=== PATIENT | male | born 1945 | race Caucasian/White ===

== ENCOUNTER 2019-10-12 06:31 | Observation (INO) | payer MEDICARE, BC ==
--- NOTE | 2019-09-23 10:30 | HP ---
AMENDED REPORT NOW INCLUDES DESIGNATED COSIGNER - ESIGNED BEFORE ADJUSTMENT HISTORY AND PHYSICAL: DATE OF ADMISSION/SURGERY: 10/12/19 DATE OF OFFICE VISIT: 09/22/19 SURGEON: Berta San MD * (DICTATED BY DAVID LOPEZ) PROCEDURE: Left total knee arthroplasty. CHIEF COMPLAINT: Left knee pain. HISTORY OF PRESENT ILLNESS: Mr. Campos is a 74-year-old gentleman with end- stage osteoarthritis of the left knee. He has failed conservative treatment and elected to proceed with a left total knee arthroplasty. PAST MEDICAL HISTORY: RA and hypertension. PAST SURGICAL HISTORY: Right total knee arthroplasty, bilateral knee arthroscopies, and tonsillectomy. CURRENT MEDICATIONS: 1. Methotrexate 2.5 mg weekly. 2. Multivitamin. 3. Folic acid. 4. Amlodipine 5 mg a day. ALLERGIES: GABAPENTIN. FAMILY HISTORY: Cancer and coronary artery disease. SOCIAL HISTORY: He is a 74-year-old gentleman, lives with his . He does not smoke or use drugs. He uses occasional alcohol. REVIEW OF SYSTEMS: A complete 14-point review of systems was reviewed with the patient. It is all negative and noncontributory. He denies a history of DVT, PE, hepatitis, HIV or anesthesia problems. PHYSICAL EXAMINATION GENERAL: He is well developed, well nourished, in no acute distress. VITAL SIGNS: He stands 70 inches tall, weighs 185 pounds. His blood pressure is 146/81, his heart rate is 62. HEENT: Normocephalic, atraumatic. NECK: Supple. No palpable lymph nodes. PULMONARY: The lungs are clear to auscultation bilaterally. CARDIO: Regular rate and rhythm. Strong S1, S2. ABDOMEN: Soft, nontender, nondistended. MUSCULOSKELETAL: Left lower extremity: The skin is intact. There are no open wounds or abrasions. There is a moderate effusion of the left knee joint and varus deformity. He is able to dorsiflex and plantar flex. He has a 2+ dorsalis pedis pulse and intact sensation. NEUROLOGICAL: He is alert and oriented x3. ASSESSMENT AND PLAN: Mr. Campos is a 74-year-old gentleman with end-stage osteoarthritis of the left knee. He has failed conservative treatment and elected to proceed with a left total knee arthroplasty. The surgery is scheduled for 10/12/[address] San discussed the risks and benefits of the surgery at today's visit and all of his questions were answered. He will follow up with Dr. San 2 weeks after the surgery. DAVID LOPEZ [id number]/[facility] #: [id number] CHERIE
[~2019-10-12 06:31] MED LIST: Acetaminophen TAB* 325 MG PO ONE; Buffered Lidocaine 1% SYRIN* 1 ML/SYRINGE INTRADERM ONE; Lactated Ringers 1000 ML Bag* 1,000 ML IV SCH; Tranexamic Acid 1,000 MG in NS 0.9% 50 ML* (outpatient use) IV SCH; celeCOXIB CAP* 200 MG PO ONE
--- OUTSIDE RECORDS SUMMARY | 2019-10-12 06:34 | XMS REPORT | Continuity of Care Document ---
:1945 External Reference #:[id number] Author Name Christie Olvera MD (transmitted by agent of provider Dagmar Shay) Address [address] , [place] [address] Care Team Providers Name Role Phone Ronn Simmons MD - Rheumatology Care Team Information Public Service Representative Alan Rudd MD - Orthopaedic Care Team Information Public Service Representative Surgery Leann Stevens MD - Care Team Information Public Service Representative [phone] Dermatology Curry Maldonado MD - Gastroenterology Care Team Information Public Service Representative Sigrid Veloz M.D. - Family Medicine Care Team Information Public Service Representative [phone] Problems Active Problems Provider Date Rheumatoid arthritis Zac Stone M.D. Onset: 03/26/2016 Localized, primary osteoarthritis Zac Stone M.D. Onset: 03/26/2016 Benign neoplasm of colon Zac Stone M.D. Onset: 03/26/2016 Essential hypertension Zac Stone M.D. Onset: 06/28/2016 Arthroplasty of knee Berta San M.D. Onset: 10/04/2016 Disorder of skin and/or subcutaneous tissue Zac Stone M.D. Onset: Acquired genu varum Berta San M.D. Onset: 09/22/2019 Social History Type Date Description Comments Sex Unknown Tobacco Use Start: Unknown End: Former Cigarette Smoker Unknown Smoking Status Reviewed: 10/07/19 Former Cigarette Smoker ETOH Use consumes 6 beers per week Tobacco Use Start: Unknown End: Patient is a former 1ppd X 15-16 years Unknown smoker Recreational Drug Use Denies Drug Use Exercise Type/Frequency Exercises sporadically Allergies, Adverse Reactions, Alerts Active Allergies Reaction Severity Comments Date Gadoteridol 05/13/2016 Inactive Allergies NKDA 04/11/2016 Medications Active Medications SIG Qnty Indications Ordering Provider Date Amoxicillin take 4 pills, 2 g 4caps Bertasuri San, 10/15/2017 500mg 1 hour before M.D. Capsules dental or gi procedure Folic Acid take 1 tablet by 90tabs M06.09 Ronn Simmons, 10/15/2017 1mg mouth once daily M.D. Tablets M06.00 Methotrexate Take 3 Tablets By 42tabs M06.09 Ronn Simmons, 10/15/2017 2.5mg Tablets Mouth Once A Week M.D. M06.00 Multi For Him 50+ 1 by mouth every Z01.818 Unknown day Tablets Amlodipine Besylate take 1 tablet by 90tabs Loretta Rodriguez, 5mg mouth once daily M.D. Tablets Medications Administered in Office Medication SIG Qnty Indications Ordering Provider Date Triamcinolone (Kenalog) Ronn Simmons M.D. 04/11/2016 Injection Immunizations CPT Code Status Date Vaccine Reaction Lot # [id number] Given 07/01/2019 Influenza Virus Vaccine, Quadrivalent, Split, Im Use [id number] Given 04/30/2018 Pneumonia Vaccine no immediate reaction [id number] noted 71160 Given 04/11/2017 Influenza Virus Vaccine, Quadrivalent, Split, Preservative Free [id number] Given 10/22/2016 Pneumococcal Conjugate [id number] Vaccine 13 Valent For Intramuscular Use 99917 Given 06/28/2016 Influ Virus Vaccine, [id number] Quadrivalent, Split Virus, Im Fluzone not PF Vital Signs Date Vital Result Comment 10/07/2019 7:57am Height 70.25 inches 5'10.25" Weight 190.00 lb Heart Rate 70 /min BP Systolic Sitting 147 mmHg BP Diastolic Sitting 88 mmHg O2 % BldC Oximetry 97 % BMI (Body Mass Index) 27.1 kg/m2 09/22/2019 8:10am Height 70.25 inches 5'10.25" Weight 190.50 lb Heart Rate 64 /min BP Systolic 142 mmHg BP Diastolic 76 mmHg Respiratory Rate 18 /min Pain Level 1 BMI (Body Mass Index) 27.1 kg/m2 Results Test Acquired Date Facility Test Result H/L Range Note CBC Auto 10/05/2019 [facility] White Blood 7.1 10^3/uL Normal 3.5-10.[address] [place] [address] [phone] Red Blood Count 4.36 10^6/uL Normal 4.18-5.48 Hemoglobin 14.2 g/dL Normal 14.0-18.0 Hematocrit 42 % Normal 42-52 Mean Corpuscular Volume 95 fL High 80-94 Mean Corpuscular Hemoglobin 33 pg High 27-31 Mean Corpuscular HGB Conc 34 g/dL Normal 31-36 Red Cell Distribution Width 14 % Normal 10-15 Platelet Count 324 10^3/uL Normal 150-450 Mean Platelet Volume 7.9 fL Normal 7.4-10.4 Abs Neutrophils 5.1 10^3/uL Normal 1.5-7.7 Abs Lymphocytes 1.3 10^3/uL Normal 1.0-4.8 Abs Monocytes 0.6 10^3/uL Normal 0-0.8 Abs Eosinophils 0.1 10^3/uL Normal 0-0.6 Abs Basophils 0.0 10^3/uL Normal 0-0.2 Abs Nucleated RBC 0.0 10^3/uL Granulocyte % 71.7 % Lymphocyte % 17.7 % Monocyte % 8.7 % Eosinophil % 1.3 % Basophil % 0.6 % Nucleated Red Blood Cells % 0.0 Comp Metabolic 10/05/2019 [facility] Sodium 142 mmol/L Normal 135-[address] [place] [address] [phone] Potassium 4.5 mmol/L Normal 3.5-5.0 Chloride 107 mmol/L Normal 101-111 Co2 Carbon Dioxide 30 mmol/L Normal 22-32 Anion Gap 5 mmol/L Normal 2-11 Glucose 80 mg/dL Normal 70-100 Blood Urea Nitrogen 13 mg/dL Normal 6-24 Creatinine 0.85 mg/dL Normal 0.67-1.17 BUN/Creatinine Ratio 15.3 Normal 8-20 Calcium 9.5 mg/dL Normal 8.6-10.3 Total Protein 6.7 g/dL Normal 6.4-8.9 Albumin 4.2 g/dL Normal 3.2-5.2 Globulin 2.5 g/dL Normal 2-4 Albumin/Globulin Ratio 1.7 Normal 1-3 Total Bilirubin 0.70 mg/dL Normal 0.2-1.0 Alkaline Phosphatase 68 U/L Normal 34-104 Alt 15 U/L Normal 7-52 Ast 13 U/L Normal 13-39 Egfr Non- 88.4 >60 Egfr 106.9 >60 1 Urinalysis Profile 10/05/2019 [facility] Urine Color Yellow [address] [place] [address] [phone] Urine Appearance Cloudy Urine Specific [place] 1.019 Normal 1.010-1.030 Urine pH 6.0 Normal 5-9 Urine Urobilinogen Negative Negative Urine Ketones Negative Negative Urine Protein Negative Negative Urine Leukocytes Negative Negative Urine Blood Negative Negative Urine Nitrite Negative Negative Urine Bilirubin Negative Negative Urine Glucose Negative Negative Inr/Protime 10/05/2019 [facility] Inr 0.98 Normal 0.82-1.[address] [place] [address] [phone] Laboratory test 10/05/2019 [facility] Partial 34.3 Normal 26.0 -38.[address] [place] [address] Time PTT [phone] Type & Screen 10/05/2019 [facility] Patient A Positive [address] Blood Type [place], [place] [phone] Antibody Screen NEGATIVE Urine Culture And 10/05/2019 [facility] Urine Culture SEE RESULT [address] [place] [address] [phone] Laboratory test 09/14/2019 [facility] PSA Diagnostic 2.908 0- 4. [address] ng/mL 0 [place] [address] [phone] Comp Metabolic 07/23/2019 [facility] Sodium 141 mmol/L Normal 135- Panel [address] [place] [address] [phone] Potassium 4.6 mmol/L Normal 3.5-5.0 Chloride 108 mmol/L Normal 101-111 Co2 Carbon Dioxide 30 mmol/L Normal 22-32 Anion Gap 3 mmol/L Normal 2-11 Glucose 90 mg/dL Normal 70-100 Blood Urea Nitrogen 11 mg/dL Normal 6-24 Creatinine 0.87 mg/dL Normal 0.67-1.17 BUN/Creatinine Ratio 12.6 Normal 8-20 Calcium 9.3 mg/dL Normal 8.6-10.3 Total Protein 6.2 g/dL Low 6.4-8.9 Albumin 4.0 g/dL Normal 3.2-5.2 Globulin 2.2 g/dL Normal 2-4 Albumin/Globulin Ratio 1.8 Normal 1-3 Total Bilirubin 0.80 mg/dL Normal 0.2-1.0 Alkaline Phosphatase 63 U/L Normal 34-104 Alt 24 U/L Normal 7-52 Ast 18 U/L Normal 13-39 Egfr Non- 86.0 >60 Egfr 104.1 >60 5 Laboratory test 07/23/2019 [facility] C Reactive 3.83 mg/L Normal <8.[address] [place] [address] [phone] CBC Auto Diff 07/23/2019 [facility] White Blood 6.5 Normal 3.5 -10.[address] Count 10^3/[place] [address] [phone] Red Blood Count 4.30 10^6/uL Normal 4.18-5.48 Hemoglobin 13.8 g/dL Low 14.0-18.0 Hematocrit 41 % Low 42-52 Mean Corpuscular Volume 96 fL High 80-94 Mean Corpuscular Hemoglobin 32 pg High 27-31 Mean Corpuscular HGB Conc 33 g/dL Normal 31-36 Red Cell Distribution Width 14 % Normal 10-15 Platelet Count 289 10^3/uL Normal 150-450 Mean Platelet Volume 7.9 fL Normal 7.4-10.4 Abs Neutrophils 4.5 10^3/uL Normal 1.5-7.7 Abs Lymphocytes 1.3 10^3/uL Normal 1.0-4.8 Abs Monocytes 0.5 10^3/uL Normal 0-0.8 Abs Eosinophils 0.1 10^3/uL Normal 0-0.6 Abs Basophils 0.0 10^3/uL Normal 0-0.2 Abs Nucleated RBC 0.0 10^3/uL Granulocyte % 69.7 % Lymphocyte % 20.1 % Monocyte % 8.3 % Eosinophil % 1.3 % Basophil % 0.6 % Nucleated Red Blood Cells % 0.0 Laboratory test 07/23/2019 [facility] Erythrocyte Sed 10 mm/Hr Normal 0-[address] [place] [address] [phone] Laboratory test 04/28/2019 [facility] [place] Standing Orders Esr Sedimentation <pending> finding Rate CRP C-Reactive Protein <pending> CBC W/Auto Diff 04/28/2019 [facility] Standing Orders White Blood Count <pending> RBC Red Blood Count <pending> Hemoglobin <pending> Hematocrit <pending> MCV (Corpuscular Volume) <pending> MCH (Corpuscular Hemoglobin) <pending> MCHC (Corpuscular Hemog Conc) <pending> RDW <pending> Platelet Count <pending> MPV <pending> Neutrophils <pending> Bands <pending> Lymphocytes <pending> Monocytes <pending> Eosinophils <pending> Basophils <pending> Absolute Basophil <pending> Absolute Eosinophil <pending> Absolute Lymphocyte <pending> Absolute Monocytes <pending> Absolute Neutrophils <pending> CMP Panel 04/28/2019 [facility] [place] Standing Orders Albumin <pending> Alt - SGPT <pending> Calcium <pending> Carbon Dioxide <pending> Chloride <pending> Creatinine <pending> Glucose Serum <pending> Alkaline Phosphatase <pending> Potassium <pending> Total Protein <pending> Sodium <pending> Ast - Sgot <pending> BUN - Urea Nitrogen <pending> Comp Metabolic 04/23/2019 [facility] Sodium 140 mmol/L Normal 135-[address] [place] [address] [phone] Potassium 4.5 mmol/L Normal 3.5-5.0 Chloride 107 mmol/L Normal 101-111 Co2 Carbon Dioxide 30 mmol/L Normal 22-32 Anion Gap 3 mmol/L Normal 2-11 Glucose 102 mg/dL High 70-100 Blood Urea Nitrogen 14 mg/dL Normal 6-24 Creatinine 0.83 mg/dL Normal 0.67-1.17 BUN/Creatinine Ratio 16.9 Normal 8-20 Calcium 9.4 mg/dL Normal 8.6-10.3 Total Protein 6.2 g/dL Low 6.4-8.9 Albumin 4.1 g/dL Normal 3.2-5.2 Globulin 2.1 g/dL Normal 2-4 Albumin/Globulin Ratio 2.0 Normal 1-3 Total Bilirubin 0.80 mg/dL Normal 0.2-1.0 Alkaline Phosphatase 58 U/L Normal 34-104 Alt 21 U/L Normal 7-52 Ast 16 U/L Normal 13-39 Egfr Non- 91.1 >60 Egfr 110.2 >60 6 Laboratory test 04/23/2019 [facility] C Reactive 3.11 mg/L Normal <8.01 [address] [place] [address] [phone] CBC Auto Diff 04/23/2019 [facility] White Blood 6.2 Normal 3.5 -10.[address] Count 10^3/[place] [address] [phone] Red Blood Count 4.39 10^6/uL Normal 4.18-5.48 Hemoglobin 14.6 g/dL Normal 14.0-18.0 Hematocrit 42 % Normal 42-52 Mean Corpuscular Volume 95 fL High 80-94 Mean Corpuscular Hemoglobin 33 pg High 27-31 Mean Corpuscular HGB Conc 35 g/dL Normal 31-36 Red Cell Distribution Width 14 % Normal 10-15 Platelet Count 276 10^3/uL Normal 150-450 Mean Platelet Volume 8.2 fL Normal 7.4-10.4 Abs Neutrophils 4.2 10^3/uL Normal 1.5-7.7 Abs Lymphocytes 1.3 10^3/uL Normal 1.0-4.8 Abs Monocytes 0.5 10^3/uL Normal 0-0.8 Abs Eosinophils 0.1 10^3/uL Normal 0-0.6 Abs Basophils 0.0 10^3/uL Normal 0-0.2 Abs Nucleated RBC 0.0 10^3/uL Granulocyte % 68.1 % Lymphocyte % 20.9 % Monocyte % 8.8 % Eosinophil % 1.5 % Basophil % 0.7 % Nucleated Red Blood Cells % 0.0 Laboratory test 04/23/2019 [facility] Erythrocyte Sed 9 mm/Hr Normal 0-19 [address] [place] [address] [phone] 1 Because ethnic data is not always readily available, this report includes an eGFR for both -Americans and non- Americans. The National Kidney Disease Education Program (NKDEP) does not endorse the use of the MDRD equation for patients that are not between the ages of 18 and 70, are , have extremes of body size, muscle mass, or nutritional status, or are non- or non-. According to the National Kidney Foundation, irrespective of diagnosis, the stage of the disease is based on the level of kidney function: Stage Description GFR(mL/min/1.73 m(2)) 1 Kidney damage with normal or decreased GFR 90 2 Kidney damage with mild decrease in GFR 60-89 3 Moderate decrease in GFR 30-59 4 Severe decrease in GFR 15-29 5 Kidney failure <15 (or dialysis) 2 Standard intensity warfarin therapeutic range: 2.0-3.0 High intensity warfarin therapeutic range: 2.5-3.5 3 SEE RESULT BELOW Name: AUGUSTO LINK : [address]: Berta San MD Acct: [id number] Unit: [id number] AGE: 74 Location: [facility] Re10/05/19 SEX: M Status: REG REF SPEC: [id number] SUDHAKAR: 10/05/19-[address]: Berta San MD REQ: [id number] RECD: 10/05/19 STATUS: COMP [facility] DR: Sigrid Veloz MD _ SOURCE: URINE SPDESC: ORDERED: Urine Culture QUERIES: Urine Source: Clean Catch Procedure Result Reported Site Urine Culture Final 10/06/19- 1328 ML No Growth (<1,000 CFU/mL) * ML - Main Lab . END OF REPORT DEPARTMENT OF PATHOLOGY, [address] [place] [address] Mikal Harkins M.D. Director [facility] # [id number] 4 Serum levels of PSA measured using the [employer] [place] DXI Hybritech immunoassay should not be interpreted as absolute evidence of the presence or absence of disease. The PSA value should be used in conjunction with other pertinent clinical diagnostic procedures. The values obtained with different assay methods or kits cannot be used interchangeably. 5 Because ethnic data is not always readily available, this report includes an eGFR for both -Americans and non- Americans. The National Kidney Disease Education Program (NKDEP) does not endorse the use of the MDRD equation for patients that are not between the ages of 18 and 70, are , have extremes of body size, muscle mass, or nutritional status, or are non- or non-. According to the National Kidney Foundation, irrespective of diagnosis, the stage of the disease is based on the level of kidney function: Stage Description GFR(mL/min/1.73 m(2)) 1 Kidney damage with normal or decreased GFR 90 2 Kidney damage with mild decrease in GFR 60-89 3 Moderate decrease in GFR 30-59 4 Severe decrease in GFR 15-29 5 Kidney failure <15 (or dialysis) 6 Because ethnic data is not always readily available, this report includes an eGFR for both -Americans and non- Americans. The National Kidney Disease Education Program (NKDEP) does not endorse the use of the MDRD equation for patients that are not between the ages of 18 and 70, are , have extremes of body size, muscle mass, or nutritional status, or are non- or non-. According to the National Kidney Foundation, irrespective of diagnosis, the stage of the disease is based on the level of kidney function: Stage Description GFR(mL/min/1.73 m(2)) 1 Kidney damage with normal or decreased GFR 90 2 Kidney damage with mild decrease in GFR 60-89 3 Moderate decrease in GFR 30-59 4 Severe decrease in GFR 15-29 5 Kidney failure <15 (or dialysis) 7 ORDERED:[id number] :[id number] STANDING ORDER Q 3 MONTH 8 ORDERED:[id number] :[id number] STANDING ORDER Q 3 MONTH Procedures Date Code Description Status 10/21/2017 19431177 Colonoscopy Completed 09/01/2007 [id number] Colonoscopy Completed Medical Devices Description No Information Available Encounters Type Date Location Provider Dx Diagnosis Office Visit 09/22/2019 [facility] Berta San, M25.562 Pain in left knee 8:00a at [facility] M25.462 Effusion, left knee M17.12 Unilateral primary osteoarthritis, left knee M21.162 Varus deformity, not elsewhere classified, left knee Office Visit 04/28/2019 9:20a [facility] M06.09 [facility] M.D. arthritis w/o rheumatoid factor, multiple sites Z79.899 Other shelter (current) drug therapy Assessments Date Code Description Provider 10/07/2019 Z01.818 Encounter for other preprocedural examination Christie Olvera MD 10/07/2019 M25.562 Pain in left knee Christie Olvera MD 10/07/2019 R91.1 Solitary pulmonary nodule Christie Olvera MD 09/22/2019 M25.562 Pain in left knee Berta San M.D. 09/22/2019 M25.462 Effusion, left knee Berta San M.D. 09/22/2019 M17.12 Unilateral primary osteoarthritis, left knee Berta San M.D. 09/22/2019 M21.162 Varus deformity, not elsewhere classified, Berta San M.D. left knee 04/28/2019 M06.09 Rheumatoid arthritis without rheumatoid Ronn Simmons M.D. factor, multiple sit 04/28/2019 Z79.899 Other terminal worker (current) drug therapy Ronn Simmons M.D. Plan of Treatment Future Appointment(s):12/21/2019 9:00 am - Noemy Pollard MD at [facility]10/12/2019 10:30 am - John Clifton PA-C at [facility] at [email or web address]/12/2019 10:30 am - DAVID Odell at [facility] at [facility]/25/2019 10:30 am - Berta San M.D. at [facility] 10:30 am - Berta San M.D. at [facility] at [email or web address] 11:20 am - Ronn Simmons M.D. at [facility]10/07/2019 - Christie Olvera MDZ01.818 Encounter for other preprocedural examinationComments :Low risk patient for a low risk procedure RCRI:0--> 3.6% risk of perioperative CV event No cardiac symptoms todayNo additional testing is requiredPatient is ok to proceed with surgical procedure STOP- BANGDo you snore loudly? Yes +1 No Do you often feel tired, fatigued, or sleepy during the daytime? Yes +1 No Has anyone observed you stop breathing during sleep? Yes +1 No Do you have (or are you being treated for) high blood pressure? Yes + 1 No BMI >35 kg/m2? Yes +1 No Age > 50 years?Yes +1 No Neck circumference >40 cm? Yes +1 No Gender male? Yes +1 No Interpretation:< 3 Lowrisk of DAVID>=3 High risk of DAVID - asymp. no need for repeat testing or evaluationFollow up:2-3 months for drzmvcB56.562 Pain in left kneeR91.1 Solitary pulmonary noduleComments:You were noted to have a pulmonary nodule in past imagingCXR from this week shows that the area is still stableRecommend review of this after your surgery to determine if biopsy is still indicated Functional Status Description No Information Available Mental Status Description No Information Available Referrals Description No Information Available
--- OUTSIDE RECORDS SUMMARY | 2019-10-12 06:34 | XMS REPORT | Continuity of Care Document ---
:1945 External Reference #:[id number] Author Name Berta San M.D. (transmitted by agent of provider Cynthia Dumont) Address [address] [place] [address] [place] [address] Care Team Providers Name Role Phone Ronn Simmons MD - Rheumatology Care Team Information Chargeback Analyst [phone] Alan Rudd MD - Orthopaedic Care Team Information Chargeback Analyst Surgery Leann Stevens MD - Care Team Information Chargeback Analyst [phone] Dermatology Curry Maldonado MD - Gastroenterology Care Team Information Chargeback Analyst Sigrid Veloz M.D. - Family Medicine Care Team Information Chargeback Analyst Problems Active Problems Provider Date Rheumatoid arthritis [...] History Type Date Description Comments Sex Unknown ETOH Use consumes 6 beers per week Tobacco Use Start: Unknown End: Patient is a former 1ppd X 15-16 years Unknown smoker Recreational Drug Use Denies Drug Use Smoking Status Reviewed: 09/22/19 Patient is a former 1ppd X 15-16 years smoker Exercise Type/Frequency Exercises sporadically Allergies, Adverse Reactions, [...] Code Status Date Vaccine Reaction Lot # [id number] Given 07/01/2019 Influenza Virus Vaccine, Quadrivalent, Split, Im Use 6-35mo 31231 Given 04/30/2018 Pneumonia Vaccine no immediate reaction [id number] noted 91241 Given 04/11/2017 Influenza Virus Vaccine, Quadrivalent, Split, Preservative Free 24155 Given 10/22/2016 Pneumococcal Conjugate [id number] Vaccine 13 Valent For Intramuscular Use 43008 Given 06/28/2016 Influ Virus Vaccine, [id number] Quadrivalent, Split Virus, Im Fluzone not PF Vital Signs Date Vital Result Comment 09/22/2019 8:10am Height 70.25 inches 5'10.25" Weight 190.50 lb Heart Rate 64 /min BP Systolic 142 mmHg BP Diastolic 76 mmHg Respiratory Rate 18 /min Pain Level 1 BMI (Body Mass Index) 27.1 kg/m2 04/28/2019 9:46am Height 70.25 inches 5'10.25" Weight 195.12 lb Heart Rate 62 /min BP Systolic Sitting 142 mmHg BP Diastolic Sitting 72 mmHg Pain Level 1 O2 % BldC Oximetry 97 % BMI (Body Mass Index) 27.8 kg/m2 Results Test Acquired Date Facility Test Result H/L Range Note Laboratory test 09/14/2019 [facility] PSA Diagnostic 2.908 0- 4.[address] ng/[place] [address] [phone] Comp Metabolic 07/23/2019 [facility] Sodium 141 mmol/L Normal 135-[address] [place] [address] [phone] Potassium 4.6 mmol/L Normal 3.5-5.0 Chloride 108 [...] Egfr Non- 86.0 >60 Egfr 104.1 >60 2 Laboratory test 07/23/2019 [facility] C Reactive 3.83 mg/L Normal <8.[address] [place] [address] [phone] CBC Auto Diff 07/23/2019 [facility] White Blood 6.5 Normal 3.5 -10.8 Count 10^3/[place] [address] [phone] Red Blood Count 4.30 10^6/uL Normal 4.18-5.48 [...] Blood Cells % 0.0 Laboratory test 07/23/2019 [facility] Erythrocyte Sed 10 mm/Hr Normal 0-[address] [place] [address] [phone] Laboratory test 04/28/2019 [facility] Standing Orders Esr Sedimentation <pending> finding Rate CRP C-Reactive Protein <pending> CBC W/Auto Diff 04/28/2019 [facility] Standing Orders White Blood Count <pending> RBC [...] <pending> Absolute Neutrophils <pending> CMP Panel 04/28/2019 [facility] Standing Orders Albumin <pending> Alt - SGPT <pending> Calcium <pending> Carbon Dioxide <pending> Chloride <pending> Creatinine <pending> Glucose Serum <pending> Alkaline Phosphatase <pending> Potassium <pending> Total Protein <pending> Sodium <pending> Ast - Sgot <pending> BUN - Urea Nitrogen <pending> Comp Metabolic 04/23/2019 [facility] Sodium 140 mmol/L Normal 135-[address] [place] [address] [phone] Potassium 4.5 mmol/L Normal 3.5-5.0 Chloride 107 [...] Egfr Non- 91.1 >60 Egfr 110.2 >60 3 Laboratory test 04/23/2019 [facility] C Reactive 3.11 mg/L Normal <8.01 [address] [place] [address] [phone] CBC Auto Diff 04/23/2019 [facility] White Blood 6.2 Normal 3.5 -10.[address] Count 10^3/[place] [address] [phone] Red Blood Count 4.39 10^6/uL Normal 4.18-5.48 [...] Blood Cells % 0.0 Laboratory test 04/23/2019 [facility] Erythrocyte Sed 9 mm/Hr Normal 0-19 [address] [place] [address] [phone] 1 Serum levels of PSA measured using the [employer] DXI Hybritech immunoassay should not be interpreted as absolute evidence of the presence or absence of disease. The PSA value should be used in conjunction with other pertinent clinical diagnostic procedures. The values obtained with different assay methods or kits cannot be used interchangeably. 2 Because ethnic data is not always readily [...] 15-29 5 Kidney failure <15 (or dialysis) 3 Because ethnic data is not always readily [...] 15-29 5 Kidney failure <15 (or dialysis) 4 ORDERED:[id number] :[id number] STANDING ORDER Q 3 MONTH 5 ORDERED:[id number] :[id number] STANDING ORDER Q 3 MONTH Procedures Date Code Description Status 10/21/2017 74185073 Colonoscopy Completed 09/01/2007 [id number] Colonoscopy Completed Medical Devices Description No Information Available Encounters Type Date Location Provider Dx Diagnosis Office Visit 04/28/2019 Rheumatology Sierra Mendoza6.09 Rheumatoid 9:20a [facility] Pablo arthritis w/o rheumatoid factor, multiple sites Z79.899 Other salvage determiner (current) drug therapy Assessments Date Code Description Provider 09/22/2019 M25.562 Pain in left knee Berta San M.D. 09/22/2019 M25.462 Effusion, left knee Berta San M.D. 09/22/2019 M17.12 Unilateral primary osteoarthritis, left knee Berta San M.D. 09/22/2019 M21.162 Varus deformity, not elsewhere classified, Berta San M.D. left knee 04/28/2019 M06.09 Rheumatoid arthritis without rheumatoid Ronn Simmons M.D. factor, multiple sit 04/28/2019 Z79.899 Other salvage determiner (current) drug therapy Ronn Simmons M.D. Plan of Treatment Future Appointment(s):10/25/2019 10:30 am - Berta San M.D. at [facility] at [id number]/12/2019 10:30 am - Berta San M.D. at [facility] at [id number]/11/2019 3:00 pm - Noemy Pollard MD at [facility] Internal Medicine - [facility]01/27/2020 11:20 am - Ronn Simmons M.D. at [facility]09/22/2019 - Berta San M.D.M25.562 Pain in left kneeFollow up :Follow up: 10-14 days [id number] Effusion, left kneeM17.12 Unilateral primary osteoarthritis, left kneeM21.162 Varus deformity, not elsewhere classified, left knee Functional Status Description No Information Available Mental Status Description No Information Available Referrals Description No Information Available
--- OUTSIDE RECORDS SUMMARY | 2019-10-12 06:34 | XMS REPORT | Continuity of Care Document ---
:1945 External Reference #:[id number] Author Name Yossi Nicolas MD, [facility] (transmitted by agent of provider Irma Adhikari) Address [address] [address] Care Team Providers Name Role Phone Ronn Simmons MD - Rheumatology Care Team Information Disk Operator Alan Rudd MD - Orthopaedic Care Team Information Disk Operator [phone] Surgery Leann Stevens MD - Care Team Information Disk Operator [phone] Dermatology Curry Maldonado MD - Gastroenterology Care Team Information Disk Operator [phone] Sigrid Veloz M.D. - Family Medicine Care Team Information Disk Operator Problems Active Problems Provider Date Rheumatoid arthritis [...] Amoxicillin take 4 pills, 2 g 4caps Berta Jaswinder, 10/15/2017 500mg 1 hour before M.D. Capsules [...] Code Status Date Vaccine Reaction Lot # 12561 Given 07/01/2019 Influenza Virus Vaccine, Quadrivalent, Split, Im Use 6-35mo 28347 Given 04/30/2018 Pneumonia Vaccine no immediate reaction [id number] noted 16159 Given 04/11/2017 Influenza Virus Vaccine, Quadrivalent, Split, Preservative Free 52527 Given 10/22/2016 Pneumococcal Conjugate [id number] Vaccine 13 Valent For Intramuscular Use 12128 Given 06/28/2016 Influ Virus Vaccine, [id number] Quadrivalent, Split Virus, Im Fluzone not PF [...] Result H/L Range Note CBC Auto 10/05/2019 [facility] White Blood 7.1 10^3/uL Normal 3.5-10.[address] [place] [address] [phone] Red Blood Count 4.36 10^6/uL Normal 4.18-5.48 [...] Red Blood Cells % 0.0 Laboratory test 09/14/2019 [facility] PSA Diagnostic 2.908 0- 4.0 [address] ng/[place] [address] [phone] Comp Metabolic 07/23/2019 [facility] Sodium 141 Normal 135- [address] mmol/[place] [address] [phone] Potassium 4.6 mmol/L Normal 3.5-5.0 Chloride 108 [...] Egfr 104.1 >60 2 Laboratory test 07/23/2019 [facility] C Reactive 3.83 mg/L Normal <8.[address] [place] [address] [phone] CBC Auto Diff 07/23/2019 [facility] White Blood 6.5 Normal 3.5 -10.[address] Count 10^3/[place] [address] [phone] Red Blood Count 4.30 10^6/uL Normal 4.18-5.48 [...] Blood Cells % 0.0 Laboratory test 07/23/2019 [facility] Erythrocyte Sed 10 mm/Hr Normal 0-[address] [place] [address] [phone] Laboratory test 04/28/2019 [facility] Standing Orders Esr Sedimentation <pending> finding Rate CRP C-Reactive Protein <pending> CBC W/Auto Diff 04/28/2019 [facility] Standing Orders White Blood Count <pending> RBC [...] <pending> Absolute Neutrophils <pending> CMP Panel 04/28/2019 [facility] Standing Orders Albumin <pending> Alt - SGPT <pending> Calcium <pending> Carbon Dioxide <pending> Chloride <pending> Creatinine <pending> Glucose Serum <pending> Alkaline Phosphatase <pending> Potassium <pending> Total Protein <pending> Sodium <pending> Ast - Sgot <pending> BUN - Urea Nitrogen <pending> Comp Metabolic 04/23/2019 [facility] Sodium 140 mmol/L Normal 135-[address] [place] [address] [phone] Potassium 4.5 mmol/L Normal 3.5-5.0 Chloride 107 [...] Egfr 110.2 >60 3 Laboratory test 04/23/2019 [facility] C Reactive 3.11 mg/L Normal <8.01 [address] [place] [address] [phone] CBC Auto Diff 04/23/2019 [facility] White Blood 6.2 Normal 3.5 -10.[address] Count 10^3/[place] [address] [phone] Red Blood Count 4.39 10^6/uL Normal 4.18-5.48 [...] Blood Cells % 0.0 Laboratory test 04/23/2019 [facility] Erythrocyte Sed 9 mm/Hr Normal 0-19 [address] [place] [address] [phone] 1 Serum levels of PSA measured using the [employer] DXI Hybritech immunoassay should not be interpreted [...] 5 Kidney failure <15 (or dialysis) 4 ORDERED:[id number] :[id number] STANDING ORDER Q 3 MONTH 5 ORDERED:[id number] :[id number] STANDING ORDER Q 3 MONTH Procedures Date Code Description Status 10/21/2017 [id number] Colonoscopy Completed 09/01/2007 [id number] Colonoscopy Completed Medical Devices Description No Information Available Encounters Type Date Location Provider Dx Diagnosis Office Visit 09/22/2019 [facility] Berta San, M25.562 Pain in left knee 8:00a at [facility]lys[facility] M25.462 Effusion, left knee M17.12 Unilateral primary osteoarthritis, left knee M21.162 Varus deformity, not elsewhere classified, left knee Office Visit 04/28/2019 9:20a Rheumatology Ronn M06.09 [facility] Simmons M.D. arthritis w/o rheumatoid factor, multiple sites Z79.899 Other medical terminologist (current) drug therapy Assessments Date Code Description Provider 09/22/2019 M25.562 Pain in left knee Berta San M.D. 09/22/2019 M25.462 Effusion, left knee Berta San M.D. 09/22/2019 M17.12 Unilateral primary osteoarthritis, left knee Berta San M.D. 09/22/2019 M21.162 Varus deformity, not elsewhere classified, Berta San M.D. left knee 04/28/2019 M06.09 Rheumatoid arthritis without rheumatoid Ronn Simmons M.D. factor, multiple sit 04/28/2019 Z79.899 Other usp (current) drug therapy Ronn Simmons M.D. Plan of Treatment Future Appointment(s):10/12/2019 10:30 am - John Clifton PA-C at [facility] at [id number]/12/2019 10:30 am - DAVID Odell at [facility] at [id number]/07/2019 8:00 am - Christie Olvera MD at [facility]10/25/2019 10:30 am - Berta San M.D. at [facility]10/12/2019 10:30 am - Berta San M.D. at [facility] at [email or web address]/11/2019 3:00 pm - Noemy Pollard MD at [facility] 11:20 am - Ronn Simmons M.D. at [facility]2019 - Berta San M.D.M25.562 Pain in left kneeFollow up:Follow up: 10-14 days [id number] Effusion, left kneeM17.12 Unilateral primary osteoarthritis, left kneeM21.162 Varus deformity, not elsewhere classified, left knee Functional Status Description No Information Available Mental Status Description No Information Available Referrals Description No Information Available
[2019-10-12] MEDS ORDERED: Acetaminophen TAB* 325 MG ONE (07:33)
[2019-10-12] MEDS ORDERED: celeCOXIB CAP* 200 MG ONE (07:34)
[2019-10-12] MEDS ORDERED: ceFAZolin 2 GM in NS PREMIX(*) 2 GM/100 ML BAG IVPB ONE (07:34)
[2019-10-12] MEDS ORDERED: Naloxone* 0.4 MG/ML 1 ML VIAL IV PRN (08:01)
[2019-10-12] MEDS ORDERED: diPHENhydraMINE IV* 50 MG/ML 1 ml VIAL (BENADRYL) IV PRN ×2 (08:01→12:46)
[2019-10-12] MEDS ORDERED: Ondansetron INJ* 2 MG/ML VIAL IV PRN ×2 (08:01→12:46)
[2019-10-12] MEDS ORDERED: oxyCODONE TAB* 5 MG TAB PO PRN ×2 (08:01→12:46)
[2019-10-12] MEDS ORDERED: fentaNYL* 50 MCG/ML 5 ML VIAL (250 MCG VIAL) ONE (08:05)
[2019-10-12] MEDS ORDERED: fentaNYL* 50 MCG/ML 2 ML VIAL (100 MCG VIAL) ONE (08:05)
[2019-10-12] MEDS ORDERED: Midazolam* 1 MG/ML 2 ML VIAL (2 MG) ONE (08:05)
[2019-10-12] MEDS ORDERED: Propofol* 500 MG/50 ML BTL ONE (08:08)
[2019-10-12] MEDS ORDERED: EPHEDrine (Pressors)* 50 MG/ML VIAL ONE (08:09)
[2019-10-12] MEDS ORDERED: ROPIVACAINE 5 MG/ML 30 ML BTL (0.5%) ONE (08:40)
[2019-10-12] MEDS ORDERED: Bupivacaine 0.5%* 50 ML MDV VIAL ONE (09:21)
[2019-10-12] MEDS ORDERED: Ondansetron ODT TAB* 4 MG PO PRN (12:46)
[2019-10-12] MEDS ORDERED: Magnesium Hydroxide LIQ* 30 ML UDC PO PRN (12:46)
[2019-10-12] MEDS ORDERED: diPHENhydraMINE PO* 25 MG PO PRN (12:46)
[2019-10-12] MEDS ORDERED: Cyclobenzaprine TAB* 10 MG PO PRN (12:46)
[2019-10-12] MEDS ORDERED: Ondansetron TAB* 4 MG PO PRN (12:46)
[2019-10-12] MEDS ORDERED: Polyethylene Glycol 3350* 17 GM PACKET PO PRN (12:46)
[2019-10-12] MEDS ORDERED: Morphine INJ* 2 MG/ML 1 ML SYRINGE (TWO MG - NEW SYRINGE VERSION) IV PRN (12:46)
[2019-10-12] MEDS ORDERED: HYDROmorphone INJ1* 1 MG/ML SYRINGE ONE (13:21)
[2019-10-12] MEDS ORDERED: oxyCODONE TAB* 5 MG TAB ONE (13:21)
[2019-10-12] MEDS: HYDROmorphone INJ1* 1 MG/ML SYRINGE IV PRN ×2 (13:22→13:28)
[2019-10-12] MEDS: Lactated Ringers 1000 ML Bag* 1,000 ML IV SCH ×2 (13:58→23:47)
[2019-10-12] MEDS: Acetaminophen TAB* 325 MG PO SCH ×2 (14:09→23:50)
[2019-10-12] MEDS: oxyCODONE/Acetamin 5/325 MG* TAB PO PRN (14:51)
--- NOTE | 2019-10-12 15:18 | PN ---
Progress Note - Progress Note Date of Service: 10/12/19 Note: Post-op: patient resting comfortably in bed. Denies CP, SOB or dizziness. He has walked with PT already. His pain is controlled. He actively DF/PF, with intact sensation and 2+ DP pulse. Continue pain management and PT. We appreciate medicines guidance. We will monitor.
--- NOTE | 2019-10-12 15:25 | CONS ---
HOSPITAL MEDICINE CONSULTATION REPORT: DATE OF CONSULT: 10/12/19 PROVIDER: Merline Rodriguez NP ATTENDING PHYSICIAN: Dr. Berta San. CONSULTING PHYSICIAN: Dr. Africa Wetzel (dictated by Merline Rodriguez NP). REASON FOR CONSULT: Co-management of chronic medical conditions. HISTORY OF PRESENT ILLNESS: Mr. Campos is a 74-year-old male with a past medical history significant for hypertension, osteoarthritis, and rheumatoid arthritis, who presented to [facility] for an elective left total knee arthroplasty with Dr. San. Please see dictated H and P from DAVID Adan, for complete details. In brief, the patient had ongoing pain, failed conservative measures; therefore, opted for an elective left total knee arthroplasty with Dr. San. In the immediate postoperative period, the patient has no complaints. He is resting comfortably in his hospital bed. He denies any recent illnesses. Denies any recent fever, chills, chest pain, shortness of breath. Denies any nausea, vomiting, diarrhea, or abdominal pain. Denies any gross hematuria, dysuria, focal weakness or sensory loss. Denies any visual complaints. Denies any rashes, lesions, open sores, psychosis or anxiety. Due to the patient's history of hypertension, Hospital Medicine was asked to co- manage his care during this hospitalization. PAST MEDICAL HISTORY: Significant for: 1. Hypertension. 2. Osteoarthritis. 3. Rheumatoid arthritis. PAST SURGICAL HISTORY: 1. Right total knee arthroplasty. 2. Tonsillectomy. HOME MEDICATIONS: Include: 1. Methotrexate 2.5 mg 3 tablets once weekly on Tuesdays, last dose was taken today. 2. Multivitamin. 3. Folic acid. 4. Norvasc 5 mg p.o. daily. ALLERGIES: To GADOTERIDOL. FAMILY HISTORY: No reported history of coronary artery disease, diabetes. Mother with a history of breast cancer. SOCIAL HISTORY: The patient lives with his . Surrogate decision maker in the event he is unable to make his own decisions is his . He is a full code. He denies any tobacco or illicit drug use. He does report occasional alcohol use. REVIEW OF SYSTEMS: A 14-point review of systems was completed and all pertinent positives are mentioned in the HPI. PHYSICAL EXAM: General: At this time, Mr. Campos is a 74-year-old male. He is alert and oriented, resting in his hospital bed, in no acute distress. He is well- developed, well-nourished. Vital Signs: Blood pressure 172/93, heart rate 63, respirations 18, O2 saturation 99%, temperature was 97.6. HEENT: Head is atraumatic, normocephalic. Eyes: EOMs are intact. Sclerae anicteric and not pale. Oral mucosa is moist. Neck is supple. Lungs are clear to auscultation bilaterally. No wheezes, rales, or rhonchi. Cardiac: S1, S2. Regular rate and rhythm. No murmurs, rubs, or gallops. Abdomen is soft and nontender. Bowel sounds are present x4. Extremities: He is able to move all 4 extremities. He does have a dressing that is dry and intact to his left knee. Pedal pulses are +2 bilaterally. Sensation is intact in all 4 extremities. Neurologic: He is awake, alert, oriented x3. His speech is clear. Thought process is intact. Skin: He does have a dressing dry and intact to his left knee. DIAGNOSTIC STUDIES/LAB DATA: CBC from 10/05/19: WBCs are 7.1, RBCs 4.36, hemoglobin 14.2, hematocrit 42, platelet count is 324. Sodium 142, potassium 4.5, chloride 107, carbon dioxide is 30, anion gap is 5, BUN was 13, creatinine 0.85, glucose was 80. ASTs were 13, ALTs were 15, alkaline phosphatase was 68. Glucose was 80, BUN 13, creatinine 0.85. Urine was within normal limits. ASSESSMENT AND PLAN: Mr. Campos is a 74-year-old male with a past medical history significant for hypertension, osteoarthritis, rheumatoid arthritis, who presented to [facility] for elective left total knee arthroplasty with Dr. San in the immediate postoperative period. He has no complaints. Our recommendations are as follows: 1. Status post left total knee arthroplasty. Management per Orthopedics. PT/ OT per Orthopedics. Bowel regime per Orthopedics. Pain management per Orthopedics. DVT prophylaxis per Orthopedics. 2. Hypertension. The patient should continue on his amlodipine 5 mg p.o. daily with holding parameters for systolic blood pressure less than 110. 3. FEN: He can have a regular diet. 4. Code status: He is a full code. 5. DVT prophylaxis: As per Orthopedics. TIME SPENT: Time spent on this consultation was 45 minutes, greater than half that time was spent at the bedside reviewing events leading thus far to his hospitalization, performing physical exam, and reviewing my plan of care. I have discussed this with my attending, Dr. Africa Wetzel; she is in agreement with my plan. MERLINE RODRIGUEZ, LICENSED OPTICIAN [id number]/[facility] #: [id number] CHERIE
[2019-10-12] MEDS: ceFAZolin 1 GM ADVAN(*) 1 GM in NS 0.9% 50 ML* 50 ML IVPB SCH (17:36)
[2019-10-12] MEDS: Docusate CAP* 100 MG PO SCH (21:23)
[2019-10-12] MEDS: Magnesium Hydroxide LIQ* 30 ML UDC PO SCH (21:23)
[2019-10-12] MEDS: traMADol TAB* 50 MG PO PRN (21:23)
[2019-10-13] MEDS: ceFAZolin 1 GM ADVAN(*) 1 GM in NS 0.9% 50 ML* 50 ML IVPB SCH ×2 (01:56→09:58)
[2019-10-13] MEDS: Acetaminophen TAB* 325 MG PO SCH ×2 (06:10→12:27)
[2019-10-13] MEDS: oxyCODONE/Acetamin 5/325 MG* TAB PO PRN ×2 (06:11→12:26)
[2019-10-13 07:19] LABS: Hematocrit 40 % (42-52); Hemoglobin 13.4 g/dL (14.0-18.0); Mean Platelet Volume 7.6 fL (7.4-10.4); Platelet Count 254 10^3/uL (150-450)
--- NOTE | 2019-10-13 07:34 | OP ---
Operative Report - Blank - Operative Report Date of Operation: 10/12/19 Note: RAMSEY LINK 1945 Date of Surgery: 10/12/19 Berta San MD [employer] In[employer]: Eder HERNANDEZ did help throughout the procedure with preparation of the knee, wound retraction, manipulation of the knee, and wound closure. Anesthesiologist: Dr. Gonzales Anesthesia Type: Spinal Preoperative Diagnosis: Left severe degenerative osteoarthritis of the knee Postoperative Diagnosis: As above Procedure Performed: Left Total Knee Arthroplasty Tourniquet time: 60 minutes Complications: None Specimen: Bone and cartilage from the left knee joint sent to pathology. Hardware Used: Cemented [employer] total knee hardware was used - For the femur a size 8 left oxinium legion posterior stabilized femoral component, for the tibia a size 7 left nayely II tibial baseplate, for the insert a size 9mm 7 -8 posterior stabilized articular polyethylene insert, and for the patella a size 35 3-peg all poly patella. Brief History/Indication: RAMSEY LINK was known in clinic and had a history of severe left knee pain and swelling. He failed conservative treatment with anti-inflammatories, pain pills, intra-articular injections and physical therapy. He elected to undergo left total knee arthroplasty due to continued pain and decreased quality of life. Radiographs showed severe end stage osteoarthritis of the knee with bone on bone contact. Informed consent was obtained from the patient. He understood the risks of surgery included but were not limited to: bleeding, infection, damage to nearby structures, intraoperative fracture, nerve palsy, failure of the hardware, early loosening, knee stiffness or loss of motion, anesthesia complications, stroke, heart attack , blood clot and . He wished to proceed. Intra-Operative Findings: Intraoperatively the patient was noted to have severe loss of cartilage in all 3 compartments of the knee. Description of the Procedure: RAMSEY LINK was identified in the preanesthesia unit. His left knee was marked as the correct operative side. Informed consent was signed and placed in the chart. The patient was taken to the operating room and placed under anesthesia without complication. A caputo catheter was placed. A tourniquet was placed on the left thigh. The left lower extremity was prepped and draped in the usual sterile fashion. Preoperative time-out was made to correctly identify the patient, side and site. Appropriate intraoperative antibiotics were given within one hour of incision. Tourniquet was inflated. A midline incision was made and carried sharply down to the extensor mechanism. A new 10 blade was used to make a standard medial parapatellar arthrotomy. The patella was subluxed laterally. Electrocautery was used to dissect soft tissue off the superomedial tibia to the midsagittal plane. The knee was flexed up. The anterior horn of the lateral meniscus and the ACL were sharply incised. A drill was used to enter the distal femur. The intramedullary distal femoral cutting guide was pinned on the distal femur. The oscillating saw was used to make the distal femoral cut. The external rotation guide was pinned on the distal femur and the distal femur was sized to a size 8. The size 8 multi-cutting jig was pinned on the distal femur. The oscillating saw was used to make the appropriate 4 chamfer cuts. Next the PCL was completely released. The extramedullary tibial cutting guide was pinned on the proximal tibia and the oscillating saw was used to make the proximal tibial cut perpendicular to the mechanical axis of the tibia. The bone was carefully removed. The knee was brought out into full extension. The spacer block was placed and had excellent fit with the knee in full extension. The medial and lateral ligaments were well balanced. The flexion and extension gaps were well balanced. The knee was flexed up. Lamina filter changing technician was placed both medially and laterally. Any remaining meniscus was removed with electrocautery. Curved osteotome was used to remove any posterior osteophytes. The tibial tray and drop kathleen were placed and confirmed a satisfactory tibial cut. The size 8 left femoral trial was impacted onto the distal femur. This trial had excellent fit and stability. The box for the posterior stabilized implant was prepared using a box cut osteotome and a reamer. Next a tibial tray trial and 9 mm insert trial was placed. The knee was taken through a range of motion and had full extension to 130 degrees of flexion. Patellofemoral tracking was satisfactory. The patella was inverted and sized to a size 35. Three peg holes were drilled through the size 35 drill guide. The trial patella was placed and the knee was taken through a range of motion. There was satisfactory patellofemoral tracking. All trials were removed. The tibia was subluxed anteriorly and sized to a size 7. The proximal tibial was prepared with a size 7 keel punch. All bony cut surfaces were irrigated with sterile saline and dried. Final implants were cemented into place starting with the tibia, followed by the femur, and last the patella. A 9 mm insert trial was placed and the knee was brought into full extension. Tourniquet was turned down and the knee was copiously irrigated with sterile saline. Electrocautery was used to obtain meticulous hemostasis. Once the cement had fully cured, the insert trial was removed. Any excess cement was removed from around the hardware and capsule. Final insert chosen was a 9 mm posterior stabilized Nayely II articular insert size 7-8. Stability of the insert was checked and noted to be stable. The extensor mechanism was closed using number 1 vicryls. The rest of the incision was closed in a layered fashion using 0 and 2-0 vicryls. The skin was closed using 3-0 nylon suture. Sterile xeroform, 4x4s and webril were used to cover the incision. Leighton wrap and cold pack were used to cover the dressings. The patients anesthesia was reversed without difficulty. He was taken to the PACU in stable condition. Intended weight-bearing will be as tolerated.
[2019-10-13 07:35] LABS: BUN/Creatinine Ratio 15.3 (8-20); Calcium 9.1 mg/dL (8.6-10.3); EGFR African American 106.9 (>60); EGFR Non-African American 88.4 (>60); Potassium 3.9 mmol/L (3.5-5.0)
[2019-10-13] MEDS ORDERED: Vitamin THERAPEUTIC TAB PO SCH (09:00)
[2019-10-13] MEDS ORDERED: Apixaban* 2.5 MG TAB PO SCH (09:00)
[2019-10-13] MEDS ORDERED: amLODIPine TAB* 5 MG PO SCH (09:00)
[2019-10-13] MEDS ORDERED: NS 0.9% 50 ML* 50 ML ONE (09:52)
[2019-10-13] MEDS: Magnesium Hydroxide LIQ* 30 ML UDC PO SCH (09:56)
[2019-10-13] MEDS: Docusate CAP* 100 MG PO SCH (09:58)
[2019-10-13] MEDS: traMADol TAB* 50 MG PO PRN (10:45)
[2019-10-13 11:28] VITALS: BP 156/72
--- NOTE | 2019-10-13 13:06 | DS ---
Orthopedic Discharge Summary - Discharge Summary Date of Admission:10/12/19 Date of Discharge: 10/13/19 Date of Surgery: 10/12/19 Attending Orthopedic Provider: Dr San Pre-operative Diagnosis: left knee osteoarthritis Operative Procedure: left total knee replacement Disposition of Patient: home Home care vs Outpatient services: outpatient Condition of Patient: stable Pain medication RX at discharge: percocet 5/325 mg DVT prophylaxis RX at discharge: eliquis 2.5 mg po bid x 30 days History: RAMSEY LINK is a 74 year old M with years of increasingly severe left knee pain. Patient has failed conservative management and has elected to undergo a left total knee replacement Hospital Course: RAMSEY was admitted to [facility] on 10/12/19. Patient underwent a left total knee replacement without complication followed by a brief recovery in PACU and transfer to the Short Stay Surgical Unit in stable condition. Our hospitalist service, physical therapy and occupational therapy also participated in this patients care. Post-op day 1: patient was alert and in no acute distress. Dressing was clean, dry and intact. Operative extremity dorsiflexion and plantarflexion intact, sensation intact to light touch distally, DP2+. Prior to discharge: dressing was changed, incision was clean, dry and intact. Patient was deemed to be medically and orthopedically stable for discharge. Physical therapy goals were met. DISCHARGE MEDICATIONS Folic Acid TAB* [Folvite TAB*] 1 mg PO QAM 10/05/19 [History Confirmed 10/12/19] Methotrexate [Xatmep] 7.5 mg PO .ONCE A WEEK 10/05/19 [History Confirmed ] Multivit-Min/FA/Lycopen/Lutein [Centrum Silver Men Tablet] 1 dose PO QAM [History Confirmed 10/12/19] amLODIPine TAB* [Norvasc 5 mg TAB*] 5 mg PO QAM 10/05/19 [History Confirmed 07/21] Acetaminophen TAB* [Tylenol TAB*] 975 mg PO Q8HR tab 10/13/19 [Rx] Apixaban* [Eliquis*] 2.5 mg PO Q12HR #60 tab 10/13/19 [Rx] Bisacodyl 10 mg SUPP [Dulcolax Supp*] 10 mg NC DAILY PRN #60 supp 10/13/19 [Rx] Docusate CAP* [Colace Cap*] 100 mg PO BID PRN #60 cap 10/13/19 [Rx] oxyCODONE/Acetamin 5/325 MG* [Percocet 5/325 TAB*] 2 tab PO Q4H PRN #60 tab MDD 10 10/13/19 [Rx] Discharge Instructions following Orthopedic Surgery: Activity: * Weight Bearing as tolerated * Continue physical therapy and occupational therapy exercises as shown * you have elected outpatient physical therapy, please start therapy as an outpatient right away. Wound care: * OK to shower on post-op day 3, no bathing, swimming, or submerging wound. * Use gentle soap, pat dry. Cover with gauze, FLORA wrap or tape. Call Orthopedic office for: * Increased drainage * Redness * Increased pain * Fever Go to ER with shortness of breath or chest pain. Diet: * Regular diet * Increase fluids and fiber to prevent constipation. * Continue to use stool softeners, call office if no bowel motion within 48 hours. Medications See Home Medication List in your packet for medications that you should take after discharge. DVT Prophylaxis: Eliquis Dosin.5 mg, 1 tab every 12 hours x 30 days. Increases bleeding tendency Pain Control: Percocet 5/325 mg 1 tab for moderate pain and 2 tabs for severe pain by mouth every 4 hours as needed. Maximum of 10 tabs per day. Hold for sedation , wean off as soon as pain allows Please note that Percocet contains Tylenol (acetaminophen). Maximum daily dose of Tylenol is 4000 mg from all sources. Antibiotics are required prior to any dental work. FOLLOW UP: Follow up with [maryam] Within [14] days, call for appointment Please call our office with any questions or concerns ([phone]) RX [facility]
== END 2019-10-13 15:13 | disposition home or self-care (01) ==
LOC: AA 06:31 → INTOOBSV 06:31 → SSU 13:46
PROVIDERS: ADMIT Orthopaedic Surgery Adult Reconstructive Orthopaedic Surgery; ATTEND Orthopaedic Surgery Adult Reconstructive Orthopaedic Surgery
DX: M17.12 Unilateral primary osteoarthritis, left knee (principal); I10 Essential (primary) hypertension; M06.9 Rheumatoid arthritis, unspecified; Z88.9 Allergy status to unspecified drugs, medicaments and biological substances; Z79.899 Other long term (current) drug therapy; Z87.891 Personal history of nicotine dependence; Z96.651 Presence of right artificial knee joint
CPT/HCPCS: 36415; 80048; 85014; 85018; 85049; 96374; 96375; A9270-GY; G0378; J0690; J1170; J2250; J2405; J2704; J2795; J3010; J3490